=== PATIENT | female | born 1990 | race Two or more races ===

== ENCOUNTER → 2020-06-26 | Outpatient (CLI) | payer OTHER ==
[2020-06-26 15:00] LABS: BASOPHILS % (AUTO) 1 % (0-1); EOSINOPHILS % (AUTO) 4 % (1-7); LYMPHOCYTES % (AUTO) 35 % (22-44); MD NO; MEAN CORPUSCULAR HEMOGLOBIN 31.8 pg (27.0-34.8); MEAN CORPUSCULAR HGB CONC 34.8 g/dL (32.4-35.8); MEAN PLATELET VOLUME 7.9 fL (7.4-10.4); MONOCYTES % (AUTO) 7 % (2-9); NEUTROPHILS % (AUTO) 53 % (42-75); PLATELET COUNT 319 x10^3/uL (130-400); RED BLOOD COUNT 4.79 x10^6/uL (3.82-5.3); RED CELL DISTRIBUTION WIDTH 13.1 % (9.6-15.2)
[2020-06-26 15:09] LABS: MICROSCOPIC INDICATED
== END | disposition home or self-care (01) ==
LOC: STAR 12:46
PROVIDERS: ATTEND Obstetrics & Gynecology
DX: Z01.812 Encounter for preprocedural laboratory examination (principal); N93.9 Abnormal uterine and vaginal bleeding, unspecified; N94.6 Dysmenorrhea, unspecified; D25.1 Intramural leiomyoma of uterus; Z20.822 Contact with and (suspected) exposure to COVID-19
CPT/HCPCS: 81001; 84703; 85025; 87077; 87086; 87186; 87635

== ENCOUNTER 2020-07-01 09:42 | Day surgery (SDC) | payer OTHER ==
[~2020-07-01] VITALS: Ht 170.2 cm; Wt 88.7 kg
[2020-07-01 10:21] VITALS: BP 113/81
[2020-07-01] MEDS ORDERED: CHLORHEXIDINE 15 ML UDC MM ONE (10:30)
[2020-07-01] MEDS ORDERED: LACTATED RINGERS 1,000 ML IV SCH (10:30)
[2020-07-01 10:33] LABS: HCG UR SG 1.024 (1.003-1.030)
[2020-07-01] MEDS ORDERED: INDIGO CARMINE 0.8%, 5ML ONE (11:04)
[2020-07-01] MEDS ORDERED: BUPIVACAINE/PF 0.25% ONE (11:04)
[2020-07-01] MEDS ORDERED: EPINEPHRINE 1 MG/ML, 1ML ONE (11:04)
[2020-07-01] MEDS ORDERED: FENTANYL PF 250 MCG/5ML ONE (11:12)
[2020-07-01] MEDS ORDERED: EPHEDRINE 50 MG/ML, 1ML ONE (12:25)
[2020-07-01] MEDS ORDERED: KETOROLAC 30 MG/1 ML ONE (12:25)
[2020-07-01] MEDS ORDERED: SUGAMMADEX 200 MG/2 ML IVPush ONE (12:25)
[2020-07-01] MEDS ORDERED: PROPOFOL 10 MG/ML, 20ML ONE (12:25)
[2020-07-01] MEDS ORDERED: ROCURONIUM 10 MG/ML,10ML ONE (12:25)
[2020-07-01] MEDS ORDERED: CEFAZOLIN 1,000 MG ONE (12:25)
[2020-07-01] MEDS ORDERED: ONDANSETRON 2MG/ML, 2ML ONE (12:25)
[2020-07-01] MEDS ORDERED: SUCCINYLCHOLINE 20 MG/ML, 10ML ONE (12:25)
[2020-07-01] MEDS ORDERED: DEXAMETHASONE 4 MG/ML, 1ML ONE (12:25)
[2020-07-01] MEDS ORDERED: MEPERIDINE/PF 25MG/0.5ML IVPush PRN (13:30)
[2020-07-01] MEDS ORDERED: PROMETHAZINE 25 MG/ML, 1ML IVPush PRN (13:30)
[2020-07-01] MEDS ORDERED: FENTANYL PF 100 MCG/2ML IV PRN (13:30)
[2020-07-01] MEDS ORDERED: ACETAMINOPHEN 325 MG TABLET PO PRN (13:30)
[2020-07-01] MEDS ORDERED: ACETAMINOPHEN 650 MG/20.3 ML UDC ONE (14:58)
[2020-07-01] MEDS ORDERED: MEPERIDINE/PF 25MG/ML,1ML ONE (14:58)
[2020-07-01] MEDS ORDERED: OXYcodone 5 MG/5 ML ORAL.SOL UDC ONE (15:43)
[2020-07-01] MEDS ORDERED: OXYcodone 5 MG/5 ML ORAL.SOL UDC PO PRN (16:00)
== END 2020-07-01 16:50 | disposition home or self-care (01) ==
LOC: OUT 09:42
PROVIDERS: ATTEND Obstetrics & Gynecology
DX: N93.9 Abnormal uterine and vaginal bleeding, unspecified (principal); N94.6 Dysmenorrhea, unspecified; N92.0 Excessive and frequent menstruation with regular cycle; D25.1 Intramural leiomyoma of uterus; N83.8 Other noninflammatory disorders of ovary, fallopian tube and broad ligament; N88.8 Other specified noninflammatory disorders of cervix uteri; N72 Inflammatory disease of cervix uteri; F41.9 Anxiety disorder, unspecified; F32.9 Major depressive disorder, single episode, unspecified; Z79.899 Other long term (current) drug therapy; Z98.51 Tubal ligation status
CPT/HCPCS: 58552; 81025; 88307; J0171; J0330; J0690; J1100; J1885; J2175; J2405; J2704; J3010; J7120